=== PATIENT | female | born 1985 | race Caucasian/White ===

== ENCOUNTER 2020-10-29 14:08 | Inpatient (IN) ==
[2020-10-30] MEDS ORDERED: OXYTOCIN 30 UNITS/500 ML BAG IV PRN ×3 (11:09→23:21)
[2020-10-30] MEDS: LACTATED RINGER'S 1,000 ML IV PRN ×2 (11:24→19:24)
[2020-10-30 11:34] LABS: Hematocrit (blood only) 36.3 % (37-47); Hemoglobin 12.6 g/dL (12.0-16.0); Mean Corpuscular Hemoglobin 32.6 pg (25-34); Mean Corpuscular Hgb Conc 34.7 g/dL (32-36); Mean Corpuscular Volume 93.8 fL (80-100); Mean Platelet Volume 9.4 fL (7.4-10.4); Platelet Count 269 K/uL (130-400); RDW Coefficient of Variation 13.7 % (11.5-14.5); RDW Standard Deviation 46.6 fL (36.4-46.3); Red Blood Count 3.87 M/uL (4.2-5.4); White Blood Count 10.18 K/uL (4.8-10.8)
--- NOTE | 2020-10-30 11:55 | History & Physical Report ---
Date of Service October 30, 2020 Assessment & Plan (1) Encounter for supervision of normal in multigravida, antepartum: Admit to L&D. We have reviewed both the and consents. Patient elects to attempt trial of labor. Reviewed risks/benefits/alternatives, including 1% risk of uterine rupture - which could require emergent , blood transfusion, risk of of baby/mom. Questions answered. CBC, Type & screen, COVID swab per protocol. Will plan to start pitocin and then AROM when able. Admission and Anticipated Discharge Date Admission Date: October 30, 2020 History of Present Illness Chief Complaint: IOL Primary Care Provider: Curly Aviles MD 35yo @ 40 0, IOL. She has h/o for breech with her first delivery, followed by successful with second delivery and desires a repeat . complicated by: Prior Section * in last Default C/S SCHEDULED WITH HARDYK ON 11/06/20 COVID TEST ON 10/31/20 wishes . GDM w/wk glucola *Begin monthly AC Us's @24wks takes Remicade for crohn's disease 1st Covid vaccine, moderna 07/14/20 Flu shot 03/20/20 Allergies Allergy/AdvReac Type Severity Reaction Status Date / Time gluten Allergy Severe Celiac's Verified 10/29/20 16:11 Disease wheat Allergy Severe Celiac's Verified 10/29/20 16:11 Disease nickel Allergy Mild red/swelling Verified 10/29/20 16:11 ears NSAIDS (Non-Steroidal AdvReac Unknown Unknown Verified 10/29/20 16:11 Anti-Inflamma Home Medications Medication Instructions Recorded Confirmed Type breast pump #1 ea 08/09/20 10/26/20 Rx calcium carbonate [Tums 500] 500 mg PO Q4 PRN 10/29/20 10/30/20 History calcium carbonate-vitamin D3 1 cap PO DAILY 10/29/20 10/30/20 History [Calcium 600 with Vitamin D3] infliximab [Remicade] 100 mg IV Q8WK 10/29/20 10/30/20 History prenat.vits,zaynab,kjd-[id number]-bdskf 1 tab PO DAILY 05/09/21 05/10/21 History [ Vitamin] Patient History Medical History Anxiety Celiac disease Crohns disease Elevated glucose level Gilbert disease History of anesthesia reaction ? after D&C in 2017 went numb and tingling thoughtout all body--lasted for 1 month--saw a neurologist--never found anything, resolved on it's own Lymphadenopathy Sjogren's disease Surgical History History of section had spinal without any issues History of colonoscopy History of dilatation and curettage History of esophagogastroduodenoscopy (EGD) History of wisdom tooth extraction Family History Mother Hypertension Father Diabetes Depression Hypertension Family history of diabetes mellitus Grandmother Breast cancer Aunt Breast cancer Uterine cancer maternal aunt Grandmother (Maternal) Family history of diabetes mellitus Grandmother (Paternal) Family history of diabetes mellitus Grandfather (Paternal) Family history of diabetes mellitus Myocardial infarction Other No family history of adverse response to anesthesia Denies family history of Ovarian cancer Prostate cancer Colorectal cancer Social History Smoking Status: Never smoker Second Hand Exposure: No; Do You Dip or Chew Tobacco: No; Tobacco Cessation Education Requested by Patient: No Hx Alcohol Use: No Hx Substance Use: No Preferred Language: Belarusian Communication Ability: Effective Switch Crew Supervisor Required: No Beliefs That Will Affect Care: None marital status: marital status details: Tal [phone]) [phone] Current Living Situation: Family Current Living Situation Comment: lives with , children and cat current occupational status: employed 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 Other Information That Helps Us Care for You: No Feels Safe at Home: Yes Safety Concerns: Feels Safe At This Time Childhood Exposure to Second-Hand Smoke: No Dental Care, Regularly: Yes Physical Activity Frequency: 3-4 Times per Week Seatbelt Use: always Sunscreen Use: Yes Assistive Devices: None Review of Systems All systems reviewed & are unremarkable except as noted in HPI & below Physical Exam Physical Exam: FHT Cat 1 Kersey irreg SVE 3-4/70/-3 Constitutional: WD/WN, vitals as above Respiratory: normal respiratory effort, lungs clear to auscultation no respiratory distress Cardiovascular: Rate/Rhythm: regular rate and regular rhythm Gastrointestinal (Abdomen): Inspection/Auscultation: abdomen normal to inspection Percussion/Palpation: abdomen soft; abdomen nontender Gravid. No s/s chorio or abruption. Skin: no rashes, warm and dry Psychiatric: A+Ox3, euthymic affect Results & Data ([facility]) Vital Signs (Past 12 Hours) Vital Signs Temp Pulse Resp BP 10/30/20 11:36 72 108/57 L 10/30/20 08:10 36.6 C 68 20 117/56 L 10/30/20 07:48 68 117/56 L Code Status & VTE Plan VTE Prophylaxis Plan VTE Prophylaxis will be ordered: No Coding Level of Care Code None Diagnoses Encounter for supervision of normal in multigravida, antepartum Z34.80
[2020-10-30] MEDS ORDERED: ePHEDrine sulfate 50 MG/ML AMP ONE (20:07)
[2020-10-30] MEDS ORDERED: BUPIVACAINE 0.25% 30 ML VIAL ONE (20:07)
[2020-10-30] MEDS ORDERED: SODIUM CHLORIDE 0.9% INJ 10 ML VIAL ONE (20:07)
[2020-10-30] MEDS ORDERED: fentaNYL 2MCG/ML ROPIVACAINE 1.25MG/ML 100 ML BAG EPI ONE (20:08)
[2020-10-30] MEDS ORDERED: fentaNYL citrate 100 MCG/2 ML VIAL ONE (20:08)
--- NOTE | 2020-10-30 20:53 | Labor Progress Brief Note ---
Date of Service October 30, 2020 Subjective SROM clear fluid, ctx then really picked up. FHT Cat 1 Mccoll Q 2 SVE /-1 Plans for epidural. Assessment & Plan Admission and Anticipated Discharge Date Admission Date: October 30, 2020 Results & Data ([facility]) Vital Signs (Past 12 Hours) Vital Signs Temp Pulse Resp BP 10/30/20 20:26 37.1 C 63 18 122/81 10/30/20 18:41 36.8 C 73 18 115/69 10/30/20 17:42 71 16 119/56 L 10/30/20 16:42 69 114/61 10/30/20 15:42 66 16 116/62 10/30/20 15:15 36.9 C 18 10/30/20 14:41 71 106/57 L 10/30/20 13:43 71 20 113/55 L 10/30/20 12:42 62 20 106/61 10/30/20 12:22 72 112/63 10/30/20 12:08 74 109/61 10/30/20 11:53 68 114/55 L 10/30/20 11:36 36.4 C L 72 20 108/57 L Coding Level of Care Code None
--- NOTE | 2020-10-30 20:56 | Anesthesiology Consultation ---
Date of Service October 30, 2020 Assessment & Plan Chart Review Chart Review: Acceptable Risk for Surgery, Patient NOT seen in Pre Admission Testing and Acceptable Risk for Labor Epidural Consults Requested none ASA ASA3 Proposed Anesthesia Anesthesia Type: Labor Epidural and CSE Risk / Benefits Reviewed With: PT / POA / Parent / Guardian, Accepts Plan and Informed Consent Obtained Additional Comments: covid test negative History Height/Weight Height: 5 ft 6 in Weight: 80.796 kg Allergies Allergy/AdvReac Type Severity Reaction Status Date / Time gluten Allergy Severe Celiac's Verified 10/29/20 16:11 Disease wheat Allergy Severe Celiac's Verified 10/29/20 16:11 Disease nickel Allergy Mild red/swelling Verified 10/29/20 16:11 ears NSAIDS (Non-Steroidal AdvReac Unknown Unknown Verified 10/29/20 16:11 Anti-Inflamma Medications Home Medications Medication Instructions Recorded Confirmed Last Taken breast pump #1 ea 08/09/20 10/26/20 Unknown calcium carbonate [Tums 500] 500 mg PO Q4 PRN 10/29/20 10/30/20 10/29/20 21:00 calcium carbonate-vitamin D3 1 cap PO DAILY 10/29/20 10/30/20 10/29/20 23:00 [Calcium 600 with Vitamin D3] infliximab [Remicade] 100 mg IV Q8WK 10/29/20 10/30/20 09/14/20 08:00 prenat.vits,zaynab,qnp-segr-jcawv 1 tab PO DAILY 10/29/20 10/30/20 10/29/20 23:00 [ Vitamin] Active Medications Generic Name Dose Route Start Last Admin Trade Name Hermanq PRN Reason Stop Dose Admin Oxytocin 30 units in 500 mls @ 17 mls/hr 10/30/20 11:09 10/30/20 17:18 Pitocin IV 11/01/20 11:08 1.02 units/hr .Q24H PRN 17 mls/hr Labor Induction/Augmentation Titration Protocol 1.02 UNITS/HR Lactated Ringer's 1,000 mls @ 125 mls/hr 10/30/20 11:10 10/30/20 19:24 Lr IV 11/01/20 11:09 125 mls/hr .Q8H PRN Administration L&D Protocol Protocol NPO Date Last Intake of Fluids: 10/30/20 Time Last Intake of Fluids: 20:00 Date Last Intake of Solids: 10/30/20 Time Last Intake of Solids: 06:30 Past Medical History Medical History Anxiety Celiac disease Crohns disease Elevated glucose level Gilbert disease History of anesthesia reaction ? after D&C in 2017 went numb and tingling thoughtout all body--lasted for 1 month--saw a neurologist--never found anything, resolved on it's own Lymphadenopathy Sjogren's disease Exercise / Class Metabolic Activity II 4-5 Yardwork/Stairs/Walk up hill Past Family History Family History Mother Hypertension Father Diabetes Depression Hypertension Family history of diabetes mellitus Grandmother Breast cancer Aunt Breast cancer Uterine cancer maternal aunt Grandmother (Maternal) Family history of diabetes mellitus Grandmother (Paternal) Family history of diabetes mellitus Grandfather (Paternal) Family history of diabetes mellitus Myocardial infarction Other No family history of adverse response to anesthesia Denies family history of Ovarian cancer Prostate cancer Colorectal cancer Past Surgical History Surgical History History of section had spinal without any issues History of colonoscopy History of dilatation and curettage History of esophagogastroduodenoscopy (EGD) History of wisdom tooth extraction Past Anesthesia History No Hx of Anesthesia Complications and No Family Hx of Anesthesia Complications History of PONV No Hx of PONV and No Hx of Motion Sickness Social History Smoking Status: Never smoker Do You Dip or Chew Tobacco: No Hx Alcohol Use: No alcohol intake frequency: holidays/special occasions only Hx Substance Use: No substance use type: does not use Physical Exam Vital Signs Last Vital Signs Temp 37.1 C 10/30/20 20:26 Pulse 63 10/30/20 20:26 Resp 18 10/30/20 20:26 BP 122/81 10/30/20 20:26 Constitutional + obese ENMT Mouth: no dentition abnormality Thyromental Distance: > or= 3.5 Finger Breadths Mallampati Class: II Neck normal visual inspection and trachea midline; neck extension not limited Respiratory normal respiratory effort Auscultation: lungs clear to auscultation bilaterally Cardiovascular Rate/Rhythm: regular rate and regular rhythm Heart Sounds: no murmur Vessels: no carotid bruit Musculoskeletal Spine: lumbar spine normal to inspection; normal cervical ROM Neurologic moves all extremities Motor/Sensory: no sensory deficit Psychiatric Orientation: alert and oriented x 3 Testing Laboratory Results 10/30/20 11:17 Blood Type O Positive 10/30/20 11:17 Antibody Screen NEGATIVE 10/30/20 11:17
[2020-10-30] MEDS ORDERED: diphenhydrAMINE 50 MG/ML VIAL IV PRN (21:19)
[2020-10-30] MEDS ORDERED: PROMETHAZINE HCL 25 MG in SODIUM CHLORIDE 0.9% 50 ML IV PRN (21:19)
[2020-10-30] MEDS ORDERED: fentaNYL 2MCG/ML ROPIVACAINE 1.25MG/ML 100 ML BAG EPI PRN (21:19)
[2020-10-30] MEDS ORDERED: ONDANSETRON INJ 2 MG/ML 2 ML VIAL IV PRN (21:19)
[2020-10-30] MEDS ORDERED: ePHEDrine sulfate 50 MG/ML AMP IV PRN (21:19)
[2020-10-30] MEDS ORDERED: NALOXONE HCL 1 MG in SODIUM CHLORIDE 0.9% 1000ML 1,000 ML IV PRN (21:19)
[2020-10-30] MEDS ORDERED: NALOXONE HCL 0.4 MG/1 ML VIAL/CARP IV PRN (21:19)
[2020-10-30] MEDS ORDERED: SILVER NITR/POTASSIUM NITRATE APPLICATOR ONE (22:41)
--- NOTE | 2020-10-30 23:16 | Delivery Summary ---
Vaginal Delivery Summary Date of Service October 30, 2020 Vaginal Delivery Summary and 2nd Degree LAC Vaginal Delivery Summary: Pre-delivery diagnoses: 35yo @ 40 0/7, h/o , Crohn's disease, GDMA1 Post-delivery diagnoses: same Procedure: vaginal after section (), repair of 2nd degree perineal laceration Surgeon: Marcia Farrell DO Complications: none Findings: Viable female . Apgars: 8/9 . Weight pending, please see [facility] records Estimated blood loss: 400ml Description of delivery: The patient progressed to complete with epidural anesthesia. She then began to push. She spontaneously vaginally delivered a viable from the cephalic presentation. The head delivered in ALETHEA position. The anterior shoulder delivered, followed by the posterior shoulder, followed by the body. The baby was placed on mother's abdomen and a spontaneous cry was heard. Delayed cord clamping was employed, and the cord was doubly clamped and cut. Cord blood was obtained. The placenta was delivered spontaneously intact with a 3-vessel cord. The uterus and vagina were swept of clots and debris. Prior uterine incision palpated and intact. IV pitocin was given. The uterus became firm. The cervix, vagina, and perineum were inspected and a 2nd degree perineal laceration was noted and repaired with 3-0 vicryl in standard fashion. Excellent hemostasis was observed. The mother and baby are recovering in stable and good condition in the room. Sponge, needle and instrument counts were correct x 2. Marcia Farrell DO [facility] Vaginal Delivery Charge Vaginal Delivery Codes: 94537 global code for the antepartum, delivery, and post- Delivery Type Details: and 2nd Degree LAC
[2020-10-30] MEDS ORDERED: IBUPROFEN 600 MG TAB PO PRN (23:21)
[2020-10-30] MEDS ORDERED: bisacodyL 10 MG SUPP PR PRN (23:21)
[2020-10-30] MEDS ORDERED: DIPHTHERIA/TETANUS/PERTUSSIS 0.5 ML SYR/VIAL IM ONE (23:21)
[2020-10-30] MEDS ORDERED: oxyCODONE/ACETAMINOPHEN 5mg/325mg TAB PO PRN (23:21)
[2020-10-30] MEDS ORDERED: SUPERCREAM 0.870% 15 GM JAR EXT PRN (23:21)
[2020-10-30] MEDS ORDERED: BENZOCAINE 20% AER SPR 82.5 GM CAN EXT PRN (23:21)
[2020-10-30] MEDS ORDERED: HYDROCORTISONE ACETATE 25 MG SUPP PR PRN (23:21)
[2020-10-31] MEDS: ACETAMINOPHEN 325 MG TAB PO PRN ×3 (03:33→18:54)
[2020-10-31 05:53] LABS: Hematocrit (blood only) 33.7 % (37-47); Hemoglobin 11.6 g/dL (12.0-16.0)
--- NOTE | 2020-10-31 06:08 | Obstetrical Progress Note ---
Date of Service <Mehrdad Salazar MD - Last Filed: 10/31/20 07:43> October 31, 2020 Assessment & Plan <Mehrdad Salazar MD - Last Filed: 10/31/20 07:43> (1) , delivered: PPD#1 Continue routine care at this time Encourage ambulation. Monitoring of oral intake, and voiding. To have follow-up in [address] Farrell Subjective <Mehrdad Salazar MD - Last Filed: 10/31/20 07:43> Lesley is a 35y/o PPD#1 s/p at 40+ weeks. Doing well this morning, having limited abdominal pain, most of her discomfort is associated with the epidural still being in place at this time. Feels like breast feeding is going well. Ambulating well, having smaller amount of lochia, tolerating oral intake. Voiding with minimal discomfort from stitches, passing gas. Physical Exam <Mehrdad Salazar MD - Last Filed: 10/31/20 07:43> HEENT: conjunctive pink, sclera anicteric Heart: regular rate, no appreciable murmur/gallop/rub Lungs: Clear to auscultation, no wheezes, rhonchi, or areas of decreased breath sounds Abdomen: uterine fundus firm, non-tender, 1cm below umbilicus Extremities: no cyanosis, edema, clubbing; nail beds pink; no calf tenderness Results & Data ([facility]) <Mehrdad Salazar MD - Last Filed: 10/31/20 07:43> Vital Signs (Past 12 Hours) Vital Signs Temp Pulse Pulse Resp BP BP Pulse Ox 10/31/20 03:30 36.6 C 78 16 103/64 97 10/31/20 01:30 37.0 C 16 100/62 97 10/31/20 01:12 80 116/64 10/31/20 00:42 76 120/56 L 10/31/20 00:33 77 119/66 10/31/20 00:24 78 111/58 L 10/31/20 00:10 76 108/63 10/30/20 23:54 73 112/55 L 10/30/20 23:39 81 125/65 10/30/20 23:30 76 119/60 10/30/20 23:09 74 104/59 L 10/30/20 23:04 68 114/59 L 10/30/20 22:55 70 110/62 99 10/30/20 22:50 74 96 10/30/20 22:45 74 112/78 100 10/30/20 22:40 73 96 10/30/20 22:35 69 98 10/30/20 22:34 68 109/54 L 10/30/20 22:30 71 98 10/30/20 22:25 73 98/49 L 98 10/30/20 22:20 68 98 10/30/20 22:17 73 115/55 L 10/30/20 22:15 71 100 10/30/20 22:10 69 99 10/30/20 22:09 77 92 10/30/20 22:05 69 99 10/30/20 22:04 66 18 124/59 L 10/30/20 22:00 71 99 10/30/20 21:55 64 118/58 L 96 10/30/20 21:50 67 98 10/30/20 21:46 115 H 78/35 L 10/30/20 21:45 76 98 10/30/20 21:40 64 16 96 10/30/20 21:35 70 97 10/30/20 21:31 68 103/59 L 10/30/20 21:30 70 18 97 10/30/20 21:28 67 99/57 L 10/30/20 21:27 73 88/54 L 10/30/20 21:25 73 97 10/30/20 21:23 74 96/55 L 10/30/20 21:20 68 22 96 10/30/20 21:19 69 95/55 L 10/30/20 21:15 61 100/58 L 93 10/30/20 21:11 57 L 98/49 L 10/30/20 21:10 63 22 98 10/30/20 21:07 53 L 117/55 L 10/30/20 21:04 60 128/64 10/30/20 21:00 22 10/30/20 20:59 58 L 122/68 10/30/20 20:55 67 121/64 10/30/20 20:26 37.1 C 63 18 122/81 10/30/20 18:41 36.8 C 73 18 115/69 Laboratory Results 05/05/1310/30/20 10/30/20 Range/Units 05:35 11:17 11:17 WBC 10.18 (4.8-10.8) K/uL RBC 3.87 L (4.2-5.4) M/uL Hgb 11.6 L 12.6 (12.0-16.0) g/dL Hct 33.7 L 36.3 L (37-47) % MCV 93.8 (80-100) fL MCH 32.6 (25-34) pg MCHC 34.7 (32-36) g/dL RDW Std Deviation 46.6 H (36.4-46.3) fL RDW Coeff of Taylor 13.7 (11.5-14.5) % Plt Count 269 (130-400) K/uL MPV 9.4 (7.4-10.4) fL Blood Type O Positive Antibody Screen NEGATIVE Medications Administered Current Inpatient Medications Acetaminophen (Acetaminophen 325 Mg Tab) 650 mg PO Q6H PRN PRN Reason: Pain/BETANCOURT/Fever Stop: 11/29/20 23:20 Last Admin: 10/31/20 03:33 Dose: 650 mg Documented by: Benzocaine (Benzocaine 20% Aer Spr 82.5 Gm Can) 1 appln EXT PRN PRN PRN Reason: Perineal Discomfort Stop: 11/29/20 23:20 Last Admin: 10/31/20 01:30 Dose: 1 appln Documented by: Bisacodyl (Bisacodyl 5 Mg Tabec) 5 mg PO 1999 [facility] Stop: 10/31/20 20:01 Bisacodyl (Bisacodyl 10 Mg Supp) 10 mg [place] DAILY PRN PRN Reason: No BM on 2nd post- day Stop: 11/29/20 23:20 Cocaine HCl (Supercream 0.870% 15 Gm Jar) 1 gm EXT BID PRN PRN Reason: Hemorrhoidal Inflammation Stop: 11/13/20 23:20 Last Admin: 10/31/20 01:31 Dose: 1 piece Documented by: Docusate Sodium (Docusate Sodium 100 Mg Cap) 100 mg PO DAILY@ [facility] Stop: 11/30/20 07:59 Hydrocortisone (Hydrocortisone Acetate 25 Mg Supp) 25 mg [place] BID PRN PRN Reason: Hemorrhoidal Inflammation Stop: 11/29/20 23:20 Oxytocin (Pitocin) 30 units in 500 mls @ 333.333 mls/hr IV .Q1H30M PRN; Protocol PRN Reason: Bleeding Control Stop: 11/29/20 23:20 Ibuprofen (Ibuprofen 600 Mg Tab) 600 mg PO Q4H PRN PRN Reason: Pain/BETANCOURT/Cramping/Fever Stop: 11/29/20 23:20 Oxycodone/Acetaminophen (Oxycodone/Acetaminophen 5mg/325mg Tab) 1 tab PO Q4H PRN PRN Reason: Pain not relieved by... Stop: 11/13/20 23:20 Prenat Multivit/[place]/Iron/Folic Ac ( Vitamin 1 Tab) 1 tab PO DAILY@08 [facility] Stop: 11/30/20 07:59 <Marcia Farrell DO - Last Filed: 10/31/20 09:23> Co-Signing Physician Notes Resident Physician Supervision Note: I was present with Dr. Salazar during the history and exam. I discussed the case with the resident and agree with the findings and plan as documented in the note. Any exceptions or clarifications are listed here: PPD#1 doing well. Anticipate DC home tomorrow. Documented By: Marcia Farrell DO Resident Activity Tracking <Mehrdad Salazar MD - Last Filed: 10/31/20 07:43> Resident Involvement: Resident Care Provided Care Provided: OB Delivery
--- NOTE | 2020-10-31 07:50 | Anesthesia Procedure Note ---
Date of Service October 31, 2020 Anesthesia Post Epidural Note Vital Signs Vital Signs: Temp Pulse Resp BP Pulse Ox 36.6 C 78 16 103/64 97 10/31/20 03:30 10/31/20 03:30 10/31/20 03:30 10/31/20 03:30 10/31/20 03:30 Pain Intensity Bilateral Abdomen: Pain Intensity: 0 Notes Mental Status: alert / awake / arousable and participated in evaluation Nausea / Vomiting: adequately controlled Pain: adequately controlled Airway Patency, RR, SpO2: stable & adequate BP & HR: stable & adequate Hydration State: stable & adequate Neuraxial Anesthesia: was administered and sensory block is resolving Anesthetic Complications: no major complications apparent and see Notes below Epidural: Removed without complications and With tip intact Notes: Patient desired epidural be removed after her delivery around midnight. Primary anesthesiologist communication manager was in the operating room until after 4 AM this morning and was not able to remove as requested. Apologized to patient that epidural had to remain in overnight. Patient denies any other questions or concerns. Epidural site clean, dry and intact. No signs of edema, erythema or bruising at insertion site. Pt instructed to request anesthesia if she has residual lower extremity numbness or if she develops lower extremity pain or weakness, back pain or headache.
[2020-10-31] MEDS: PRENATAL VITAMIN 1 TAB PO SCH (08:44)
[2020-10-31] MEDS: DOCUSATE SODIUM 100 MG CAP PO SCH ×2 (08:44→21:27)
[2020-10-31] MEDS ORDERED: bisacodyL 5 MG TABEC PO SCH (20:00)
[2020-11-01] MEDS: ACETAMINOPHEN 325 MG TAB PO PRN (03:50)
--- NOTE | 2020-11-01 06:04 | Obstetrical Progress Note ---
Date of Service November 01, 2020 Assessment & Plan (1) , delivered: PPD#2 Doing well. No concerns at this time. Continue routine care. Following discharge to have follow-up in [address] Bud Mesa Lesley is a 35y/o PPD#2 s/p at 40+ weeks. Doing well this morning, having minimal abdominal pain. Feels like breast feeding is going well, but spent majority of last night dealing with cluster feedings like she did with her first two children. Ambulating well, having smaller amount of lochia, tolerating oral intake. Voiding with no discomfort, passing gas. Physical Exam HEENT: conjunctive pink, sclera anicteric Heart: regular rate, no appreciable murmur/gallop/rub Lungs: Clear to auscultation, no wheezes, rhonchi, or areas of decreased breath sounds Abdomen: uterine fundus firm, non-tender, 2cm below umbilicus Extremities: no cyanosis, edema, clubbing; nail beds pink; no calf tenderness Results & Data ([facility]) Vital Signs (Past 12 Hours) Vital Signs Temp Pulse Resp BP Pulse Ox 10/31/20 23:15 36.6 C 61 18 104/61 10/31/20 18:58 36.6 C 71 16 106/70 100 Medications Administered Current Inpatient Medications Acetaminophen (Acetaminophen 325 Mg Tab) 650 mg PO Q6H PRN PRN Reason: Pain/BETANCOURT/Fever Stop: 11/29/20 23:20 Last Admin: 11/01/20 03:50 Dose: 650 mg Documented by: Benzocaine (Benzocaine 20% Aer Spr 82.5 Gm Can) 1 appln EXT PRN PRN PRN Reason: Perineal Discomfort Stop: 11/29/20 23:20 Last Admin: 10/31/20 01:30 Dose: 1 appln Documented by: Bisacodyl (Bisacodyl 10 Mg Supp) 10 mg [place] DAILY PRN PRN Reason: No BM on 2nd post- day Stop: 11/29/20 23:20 Cocaine HCl (Supercream 0.870% 15 Gm Jar) 1 gm EXT BID PRN PRN Reason: Hemorrhoidal Inflammation Stop: 11/13/20 23:20 Last Admin: 10/31/20 01:31 Dose: 1 piece Documented by: Docusate Sodium (Docusate Sodium 100 Mg Cap) 100 mg PO DAILY@ [facility] Stop: 11/30/20 07:59 Last Admin: 10/31/20 21:27 Dose: 100 mg Documented by: Hydrocortisone (Hydrocortisone Acetate 25 Mg Supp) 25 mg [place] BID PRN PRN Reason: Hemorrhoidal Inflammation Stop: 11/29/20 23:20 Oxytocin (Pitocin) 30 units in 500 mls @ 333.333 mls/hr IV .Q1H30M PRN; Protocol PRN Reason: Bleeding Control Stop: 11/29/20 23:20 Ibuprofen (Ibuprofen 600 Mg Tab) 600 mg PO Q4H PRN PRN Reason: Pain/BETANCOURT/Cramping/Fever Stop: 11/29/20 23:20 Oxycodone/Acetaminophen (Oxycodone/Acetaminophen 5mg/325mg Tab) 1 tab PO Q4H PRN PRN Reason: Pain not relieved by... Stop: 11/13/20 23:20 Prenat Multivit/[place]/Iron/Folic Ac ( Vitamin 1 Tab) 1 tab PO DAILY@08 [facility] Stop: 11/30/20 07:59 Last Admin: 10/31/20 08:44 Dose: 1 tab Documented by: Resident Activity Tracking Resident Involvement: Resident Care Provided Care Provided: OB Delivery
[2020-11-01] MEDS: PRENATAL VITAMIN 1 TAB PO SCH (09:00)
[2020-11-01] MEDS: DOCUSATE SODIUM 100 MG CAP PO SCH (09:00)
== END 2020-11-01 11:25 | disposition home or self-care (01) | DRG 806 ==
LOC: OPB 14:08 → 4S1 10-30 07:40 → EDSTATUS 10-30 14:07 → 4S2 10-31 01:58